=== PATIENT | male | born 1965 | race Caucasian/White ===

== ENCOUNTER 2020-12-04 23:13 | Emergency (ER) | payer OTHER ==
[2020-12-04 23:21] VITALS: RESP 18; TEMP 98
--- NOTE | 2020-12-04 23:37 | ED ---
Recheck HPI - General Chief Complaint: Recheck/Abnormal Lab/Rx Stated Complaint: covid test Time Seen by Provider: 12/04/20 23:27 Source: patient Mode of arrival: ambulatory Limitations: no limitations - History of Present Illness Initial Comments: 55 year-old male patient presents to ER requesting COVID-19 testing [place] order [place]. Patient denies any signs or symptoms at this time. Came over today to take their daughter to college. No known contacts or exposures to COVID. - Related Data Allergies Allergy/AdvReac Type Severity Reaction Status Date / Time No Known Allergies Allergy Verified 12/04/20 23:21 Review of Systems ROS Statement: Those systems with pertinent positive or pertinent negative responses have been documented in the HPI. ROS Other: All systems not noted in ROS Statement are negative. Past Medical History Past Medical History: No Reported History History of Any Multi-Drug Resistant Organisms: None Reported Past Surgical History: No Surgical Hx Reported Past Psychological History: No Psychological Hx Reported Smoking Status: Never smoker Past Alcohol Use History: None Reported Past Drug Use History: None Reported General Exam Limitations: no limitations General appearance: alert, in no apparent distress Neurological exam: Present: alert, oriented X3, CN II-XII intact Psychiatric exam: Present: normal affect, normal mood Skin exam: Present: warm, normal color. Absent: rash Course Vital Signs 12/04/20 12/05/20 23:19 00:25 Temperature 98.0 F Pulse Rate 84 76 Respiratory 18 18 Rate Blood Pressure 187/87 168/82 O2 Sat by Pulse 95 97 Oximetry Medical Decision Making - Medical Decision Making 55 year-old male came in requesting COVID-19 testing. Denies having any symptoms or known exposures. Test result was negative. He was given a copy. Instructed to follow up with PCP as needed. My attending is Dr. Aguilar. - Lab Data Lab Results 12/04/20 Range/Units 23:26 Coronavirus (PCR) Not Detected (Not Detectd) Disposition Clinical Impression: Encounter for laboratory testing for COVID-19 virus Disposition: HOME SELF-CARE Condition: Good Is patient prescribed a controlled substance at d/c from ED?: No Referrals: None,Stated [Primary Care Provider] - 1-2 days
[2020-12-05 00:26] VITALS: BP 168/82; PULSE 76
== END 2020-12-05 00:26 | disposition home or self-care (01) ==
LOC: EC 23:13
DX: Z20.822 Contact with and (suspected) exposure to COVID-19 (principal)
CPT/HCPCS: 87635; 99282